=== PATIENT | male | born 1955 | race Hispanic/Latino ===

== ENCOUNTER → 2020-02-26 | Day surgery (SDC) | payer BC, OTHER ==
[~2020-02-26] MED LIST: ATORVASTATIN CA20 MG PO; BUPIVACAINE 0.25%/EPI 30ML SDV INJ ONE; ETOMIDATE 2 MG/ML 10 ML INJ IV ONE; KETOROLAC TROMETHAMINE 30 MG/ML VIAL ONE; LIDOCAINE HCL 2% LOCAL INJ 5 ML SDV VIAL INJ ONE; MULTIVITAMINS1 EAC7 PO; ONDANSETRON HCL INJ 2MG/ML 2ML 2 MG/ML VIAL ONE; PROPOFOL IV EMULSION 10 MG/ML 20 ML VIAL ONE; SEVOFLURANE INHAL SOLN 250 ML PEN BTL ONE
[2020-02-26 17:05] VITALS: BP 146/88
--- NOTE | 2020-02-27 09:43 | Operative Report ---
DATE OF PROCEDURE: 02/26/2020 SURGEON: Shawn Raya MD PREOPERATIVE DIAGNOSES: Left knee medial meniscus tear, left knee degenerative joint disease of the knee. POSTOPERATIVE DIAGNOSES: Left knee medial meniscus tear, left knee degenerative joint disease of the knee. OPERATIONS AND PROCEDURES PERFORMED: The patient underwent left knee examination under anesthesia, left knee arthroscopy, left knee partial medial meniscectomy, left knee chondroplasty of the patella, the trochlea, the medial femoral condyle and the medial tibial plateau. NON MORSE INTERCEPT TECHNICIAN: None. ANESTHESIA: General endotracheal intubation anesthesia. IV FLUIDS: Per Anesthesia record. BRIEF DESCRIPTION OF THE PATIENT'S OPERATIVE PROCEDURE: Mr. Baltazar was taken to the operating room and placed in supine position on the operating table. Following induction of general anesthesia as well as endotracheal intubation, the patient's left lower extremity was examined under anesthesia. He was found to have a mild effusion within the knee joint, but otherwise ligamentously stable knee. The patient's lower extremity was prepped and draped in standard surgical fashion. A two-port technique was used to provide this patient arthroscopic evaluation of the knee joint. Examination of suprapatellar pouch, medial and lateral gutters found no evidence of loose bodies. There was, however, evidence of chondromalacia of the patella and trochlear surfaces. The scope was advanced into medial compartment. Examination of medial compartment demonstrated a tear in the midportion and root of the medial meniscus. There was also chondromalacia articulating surfaces. A combination of biting forceps and motorized shaver were used to resect the torn portion of meniscus. Chondroplasties of the medial femoral condyle and medial tibial plateau performed at this time. Scope was then advanced into the intercondylar notch, the anterior cruciate ligament was identified and found to be intact. Scope was advanced into lateral compartment. There was no significant pathology. The scope was then placed in suprapatellar pouch and chondroplasties of the patella and trochlea were performed at this time. The knee was deflated with sterile normal saline. The portal sites were closed using 4-0 nylon suture. The portal sites as well as knee itself were injected with 0.5% Marcaine with epinephrine. Sterile dressings were applied. The patient was awakened and taken to postanesthesia care unit in stable condition. MD KAREN Bill/SIENAL /[id number]
== END | disposition home or self-care (01) ==
LOC: OR 11:43
PROVIDERS: ATTEND Specialist
DX: S83.222A Peripheral tear of medial meniscus, current injury, left knee, initial encounter (principal); M22.42 Chondromalacia patellae, left knee; M17.12 Unilateral primary osteoarthritis, left knee; E78.00 Pure hypercholesterolemia, unspecified; R00.1 Bradycardia, unspecified; X58.XXXA Exposure to other specified factors, initial encounter; Z01.810 Encounter for preprocedural cardiovascular examination; Z01.812 Encounter for preprocedural laboratory examination; Z11.59 Encounter for screening for other viral diseases
CPT/HCPCS: 29881; 93005; J1885; J2001; J2405; J2704; U0002

== ENCOUNTER → 2020-03-30 | Outpatient (RCR) | payer BC, OTHER ==
[~2020-03-30] MED LIST changes: -BUPIVACAINE 0.25%/EPI 30ML SDV INJ ONE; -ETOMIDATE 2 MG/ML 10 ML INJ IV ONE; -KETOROLAC TROMETHAMINE 30 MG/ML VIAL ONE; -LIDOCAINE HCL 2% LOCAL INJ 5 ML SDV VIAL INJ ONE; -ONDANSETRON HCL INJ 2MG/ML 2ML 2 MG/ML VIAL ONE; -PROPOFOL IV EMULSION 10 MG/ML 20 ML VIAL ONE; -SEVOFLURANE INHAL SOLN 250 ML PEN BTL ONE
== END ==
LOC: PT 03-13 07:52
PROVIDERS: ATTEND Specialist
DX: M25.562 Pain in left knee (principal); M25.662 Stiffness of left knee, not elsewhere classified; M62.81 Muscle weakness (generalized)

== ENCOUNTER 2020-04-03 08:00 | Outpatient (RCR) | payer BC | END 2020-04-29 | LOC: PT 08:00 | PROVIDERS: ATTEND Specialist | DX: M25.662 Stiffness of left knee, not elsewhere classified (principal); M62.81 Muscle weakness (generalized) ==